=== PATIENT | male | born 1950 | race Caucasian/White ===

== ENCOUNTER 2018-06-03 07:29 | Day surgery (SDC) | payer MEDICARE ==
[2018-06-03] VITALS (10 sets, daily range): BP systolic 135–213; BP diastolic 64–180
[~2018-06-03] VITALS: Ht 180.3 cm; Wt 116.4 kg
[~2018-06-03 07:29] MED LIST: DIGO125T87 PO; DILT240C94 PO; DOXA8TAB81 PO; FENO134C PO; FLUT16H NS; HYDR25TA PO; INSLAN SQ; METO100T7 PO; REPA2TAB8 PO; SITA1TAB6 PO; SODIUM CHLORIDE 0.9% 1000ML 1,000 ML IV ONE; VALS160T29 PO; WARF-57 PO
[2018-06-03] MEDS ORDERED: PROPOFOL 1000 MG/100 ML 100 ML IV ONE (09:29)
[2018-06-03] MEDS ORDERED: HYDRALAZINE HCL 20 MG/ML VIAL IV SCH (10:47)
[2018-06-03] MEDS ORDERED: HYDRALAZINE HCL 20 MG/ML VIAL ONE (10:50)
[2018-06-03] MEDS ORDERED: MEPERIDINE-PF 25 MG/ML SYG IVP SCH (11:03)
[2018-06-03] MEDS ORDERED: MEPERIDINE-PF 25 MG/ML SYG ONE (11:04)
== END 2018-06-03 11:37 | disposition home or self-care (01) ==
LOC: ENDO 07:29 → DAH 07:29 → ENDO 11:37
PROVIDERS: ATTEND Internal Medicine
DX: D12.2 Benign neoplasm of ascending colon (principal); D12.3 Benign neoplasm of transverse colon; D12.4 Benign neoplasm of descending colon; D12.5 Benign neoplasm of sigmoid colon; D12.8 Benign neoplasm of rectum; K29.50 Unspecified chronic gastritis without bleeding; K21.0 Gastro-esophageal reflux disease with esophagitis; K57.30 Diverticulosis of large intestine without perforation or abscess without bleeding; Z86.010 Personal history of colon polyps; E11.9 Type 2 diabetes mellitus without complications; I48.2 Chronic atrial fibrillation; J44.9 Chronic obstructive pulmonary disease, unspecified; M19.90 Unspecified osteoarthritis, unspecified site; Z98.890 Other specified postprocedural states; Z79.899 Other long term (current) drug therapy; Z79.4 Long term (current) use of insulin; E78.5 Hyperlipidemia, unspecified; I10 Essential (primary) hypertension; Z79.84 Long term (current) use of oral hypoglycemic drugs; Z79.01 Long term (current) use of anticoagulants; K59.00 Constipation, unspecified
CPT/HCPCS: 43239; 45380; 45385; 82948 ×2; 88305; 93005; A4606; J0360; J2175; J2704; J7030; 45384

== ENCOUNTER → 2018-08-24 | Outpatient (CLI) | payer MEDICARE ==
[~2018-08-24] MED LIST changes: -SODIUM CHLORIDE 0.9% 1000ML 1,000 ML IV ONE; -WARF-57 PO
== END | disposition home or self-care (01) ==
LOC: RAH 12:04
PROVIDERS: ATTEND Neuromusculoskeletal Medicine & OMM
DX: M53.3 Sacrococcygeal disorders, not elsewhere classified (principal); M54.5 Low back pain; M25.552 Pain in left hip; M25.551 Pain in right hip
CPT/HCPCS: 72100; 72170; 73521

== ENCOUNTER → 2019-07-07 | Outpatient (CLI) | payer MEDICARE ==
[~2019-07-07] MED LIST changes: +DIGO125T71 PO; -DIGO125T87 PO
[2019-07-07 13:30] LABS: BASOPHILS % (AUTO) 0.9 % (0.0-5.0); EOSINOPHILS % (AUTO) 2.7 % (0.0-8.0); HEMATOCRIT 48.8 % (42-54); LYMPHOCYTES % (AUTO) 21.6 % (21.0-51.0); MEAN CORPUSCULAR HEMOGLOBIN 31.6 pg (27.0-33.0); MEAN CORPUSCULAR HGB CONC 31.6 g/dL (32.0-36.0); MEAN CORPUSCULAR VOLUME 100.2 fL (79-99); MONOCYTES % (AUTO) 10.2 % (3.0-13.0); NEUTROPHILS % (AUTO) 64.1 % (40.0-77.0); PLATELET COUNT (AUTO) 218 K/uL (130-400); RED BLOOD CELL COUNT(AUTO) 4.87 MIL/uL (4.50-6.20); RED CELL DISTRIBUTION WIDTH 13.3 % (11.0-15.5); WHITE BLOOD COUNT (AUTO) 7.8 K/uL (4.8-10.8)
[2019-07-07 13:49] LABS: CREATININE 1.2 mg/dL (0.5-1.5); POTASSIUM 4.2 mmol/L (3.5-5.1)
== END | disposition home or self-care (01) ==
LOC: LAB 12:21
PROVIDERS: ATTEND Urology
DX: N28.1 Cyst of kidney, acquired (principal)
CPT/HCPCS: 36415; 80048; 85025

== ENCOUNTER → 2019-07-10 | Outpatient (CLI) | payer MEDICARE ==
[~2019-07-10] MED LIST changes: +IOHEXOL 350 MG/ML 100ML INFUS..BTL IV ONE
== END | disposition home or self-care (01) ==
LOC: RAH 07:47
PROVIDERS: ATTEND Urology
DX: K76.0 Fatty (change of) liver, not elsewhere classified (principal); K42.9 Umbilical hernia without obstruction or gangrene; N28.1 Cyst of kidney, acquired; I51.7 Cardiomegaly; I70.0 Atherosclerosis of aorta; M47.819 Spondylosis without myelopathy or radiculopathy, site unspecified; M43.26 Fusion of spine, lumbar region
CPT/HCPCS: 74178; Q9967